=== PATIENT | female | born 1990 ===

== ENCOUNTER → 2017-06-21 | Day surgery (SDC) | payer OTHER ==
[2017-06-05 14:13] VITALS: Ht 170.2 cm; Wt 90.9 kg
[~2017-06-21] VITALS: Ht 170.2 cm; Wt 90.9 kg
[~2017-06-21] MED LIST: LEVO25TA PO
== END | disposition home or self-care (01) ==
LOC: EDSTATUS 13:30 → C.PAT 16:19
PROVIDERS: ATTEND Orthopaedic Surgery
DX: M75.102 Unspecified rotator cuff tear or rupture of left shoulder, not specified as traumatic (principal); Z53.9 Procedure and treatment not carried out, unspecified reason